=== PATIENT | male | born 1985 | race Caucasian/White ===

== ENCOUNTER 2017-02-26 20:46 | Emergency (ER) | payer BC, OTHER ==
[2017-02-26] MEDS ORDERED: Ciprofloxacin 500 MG TAB ONE (21:26)
== END 2017-02-26 21:21 | disposition home or self-care (01) ==
LOC: ERS 20:46
DX: Z77.21 Contact with and (suspected) exposure to potentially hazardous body fluids (principal); E78.5 Hyperlipidemia, unspecified
CPT/HCPCS: 99283

== ENCOUNTER 2017-10-27 10:27 | Emergency (ER) | payer BC, OTHER ==
[2017-10-27] MEDS ORDERED: HYDROcodone/Acetaminophen 7.5/325 mg Tablet ONE (10:34)
[2017-10-27] MEDS ORDERED: Adacel (T-DAP) 0.5 ML VIAL ONE (10:54)
[2017-10-27] MEDS ORDERED: CEFAZOLIN 1 GM VIAL ONE (11:05)
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
[2017-10-27] MEDS ORDERED: Bacitracin Zinc 1 Packet ONE (12:38)
== END 2017-10-27 13:02 | disposition home or self-care (01) ==
LOC: ERS 10:27
DX: S62.521A Displaced fracture of distal phalanx of right thumb, initial encounter for closed fracture (principal); E78.5 Hyperlipidemia, unspecified; X58.XXXA Exposure to other specified factors, initial encounter
CPT/HCPCS: 26750; 90471; 90715; 96372; J0690

== ENCOUNTER 2021-10-02 12:33 | Outpatient (CLI) | payer BC | END 2021-10-02 12:34 | disposition home or self-care (01) | LOC: BICRAD 12:33 | PROVIDERS: ATTEND Nurse Practitioner Family | DX: M54.41 Lumbago with sciatica, right side (principal); M25.511 Pain in right shoulder; M19.011 Primary osteoarthritis, right shoulder | CPT/HCPCS: 72110 ==